=== PATIENT | male | born 1990 | race Hispanic/Latino ===

== ENCOUNTER 2020-03-23 15:11 | Outpatient (CLI) | payer OTHER ==
--- NOTE | 2020-03-23 19:07 | RAD ---
CHEST FOUR VIEWS: 03/23/20 PA, lateral and both decubitus views were provided. Comparison is made with a 01/18/19 study. The heart is normal in size today. There is no vascular congestion, edema, or pleural effusion of con cern. The mediastinum was unremarkable in appearance. IMPRESSION: No significant finding. POS: HOME
== END 2020-03-23 15:12 | disposition home or self-care (01) ==
LOC: BURRAD 15:11
PROVIDERS: ATTEND Family Medicine
DX: R09.1 Pleurisy (principal)
CPT/HCPCS: 71048